=== PATIENT | male | born 1955 | race Caucasian/White ===

== ENCOUNTER 2016-04-29 23:33 | Emergency (ER) | payer OTHER ==
[2016-04-30 02:26] LABS: HEMOGLOBIN 14.9 gm/dl (14.0-17.5); RED BLOOD COUNT 4.61 M/UL (4.20-5.50); WHITE BLOOD COUNT 9.7 K/UL (4.5-11.0)
[2016-04-30 02:47] LABS: BUN/CREATININE RATIO 13 (0-10)
== END 2016-04-30 06:06 | disposition home or self-care (01) ==
LOC: ER1 23:33
PROVIDERS: Student in an Organized Health Care Education/Training Program
DX: I11.0 Hypertensive heart disease with heart failure (principal); I50.9 Heart failure, unspecified; J44.9 Chronic obstructive pulmonary disease, unspecified; E11.9 Type 2 diabetes mellitus without complications; Z88.1 Allergy status to other antibiotic agents; Z99.81 Dependence on supplemental oxygen
CPT/HCPCS: 36415; 71020; 80053; 81001; 82550; 82553; 83874; 83880; 84484; 85025; 93005; 96374; 99284; J1940